=== PATIENT | male | born 1990 | race Two or more races ===

== ENCOUNTER → 2021-12-20 | Emergency (ER) | payer SELFPAY ==
[~2021-12-20] VITALS: Ht 170.2 cm; Wt 86.2 kg
[2021-12-20 12:01] VITALS: BP 126/79
== END | disposition left against medical advice (07) ==
LOC: ER 11:14 → EDBD 11:14
DX: M54.59 Other low back pain (principal); Z53.21 Procedure and treatment not carried out due to patient leaving prior to being seen by health care provider; V43.62XA Car passenger injured in collision with other type car in traffic accident, initial encounter; Y93.89 Activity, other specified; Y92.410 Unspecified street and highway as the place of occurrence of the external cause; Y99.8 Other external cause status